=== PATIENT | female | born 1950 | race Caucasian/White ===

== ENCOUNTER → 2025-02-10 | Outpatient (CLI) | payer MEDICARE, OTHER | LOC: RESCLI 01:57 | PROVIDERS: ATTEND Student in an Organized Health Care Education/Training Program | DX: J45.909 Unspecified asthma, uncomplicated (principal); I50.30 Unspecified diastolic (congestive) heart failure; E03.9 Hypothyroidism, unspecified; H40.9 Unspecified glaucoma; I25.10 Atherosclerotic heart disease of native coronary artery without angina pectoris; K21.9 Gastro-esophageal reflux disease without esophagitis; E56.9 Vitamin deficiency, unspecified ==